=== PATIENT | male | born 1950 | race Caucasian/White ===

== ENCOUNTER 2018-11-03 09:36 | Emergency (ER) | payer MEDICARE, OTHER ==
[2018-11-03] MEDS ORDERED: CYCLOBENZAPRINE 10MG TABLET PO ONE (10:10)
[2018-11-03] MEDS ORDERED: NAPROXEN 250 MG TABLET PO ONE (10:10)
--- NOTE | 2018-11-03 10:19 | Emergency Department Record ---
History of Present Illness - General Chief complaint: Pain Stated complaint: LEFT HIP PAIN Time Seen by Provider: 11/03/18 09:51 Source: Patient Mode of Arrival: Ambulatory Limitations: No limitations - History of Present Illness Initial comments: The patient is here due to L lower back pain for 2 days. The pain is in the L lower back by his hip and does intermittently radiate to the buttocks. The pain is worse with any bending or twisting or walking and he denies any leg numbness , weakness, or any bowel or bladder issues. The patient was shoveling snow the day prior to the pain. He also denies any AP, nausea, vomiting or dysuria. MD Complaint: Other Onset/Timin Location: Left History of Same: No Radiation: Distal Severity scale (1-10): 9 Quality: Other Consistency: Constant Improves with: Other Worsens with: Exertion Associated Symptoms: Denies other symptoms - Related Data Home Medications Medication Instructions Recorded Confirmed Last Taken Aspirin Chewable 81 mg PO DAILY 11/03/18 11/03/18 11/02/18 08:00 Pravastatin Sodium [Pravachol] 10 mg PO QHS 11/03/18 11/03/18 Unknown Previous Rx's Medication Instructions Recorded Cyclobenzaprine HCl [Flexeril] 10 mg PO TID PRN #20 tablet 11/03/18 Naproxen [Naprosyn] 500 mg PO BID #14 tablet. 11/03/18 Allergies Allergy/AdvReac Type Severity Reaction Status Date / Time No Known Drug Allergies Allergy Verified 11/03/18 09:52 Travel Screening - Travel/Exposure Within Last 30 Days Have you traveled within the last 30 days?: No - Travel/Exposure Within Last Year Have you traveled outside the [place] in the last year?: No - Additonal Travel Details Have you been exposed to anyone with a communicable illness?: No - Travel Symptoms Symptom Screening: None Review of Systems Constitutional: Denies: Chills, Fever Eyes: Denies: Eye discharge ENT: Denies: Congestion Respiratory: Denies: Cough, Dyspnea Past Medical History - SOCIAL HISTORY Smoking Status: Former smoker Alcohol Use: None Drug Use: None - RESPIRATORY Hx Respiratory Disorders: No - CARDIOVASCULAR Hx Cardio Disorders: Yes Hx Hypertension: Yes Comment:: hypercholesteremia, aortic aneurysm dx by Chiropractor - NEURO Hx Neuro Disorders: Yes Hx TIA: Yes - GI Hx GI Disorders: Yes Hx Abdominal Pain: Yes - Hx Genitourinary Disorders: No - ENDOCRINE Hx Endocrine Disorders: No - MUSCULOSKELETAL Hx Musculoskeletal Disorders: No - PSYCH Hx Psych Problems: No - HEMATOLOGY/ONCOLOGY Hx Hematology/Oncology Disorders: No Family Medical History Any Significant Family History?: Yes Hx Cancer: Father, Mother, Grandparents Physical Exam - General General Appearance: Alert, Oriented x3, Cooperative, No acute distress - Head Head exam: Atraumatic, Normocephalic, Normal inspection - Eye Eye exam: Normal appearance, PERRL, EOMI - ENT Throat exam: Normal inspection. negative: Tonsillar erythema, Tonsillar exudate - Neck Neck exam: Normal inspection, Full ROM. negative: Tenderness - Respiratory Respiratory exam: Normal lung sounds bilaterally. negative: Respiratory distress - Cardiovascular Cardiovascular Exam: Regular rate, Normal rhythm, Normal heart sounds - GI/Abdominal GI/Abdominal exam: Soft, Normal bowel sounds. negative: Tenderness - Extremities Extremities exam: Normal inspection, Full ROM, Normal capillary refill. negative: Pedal edema, Tenderness Image of Full Body: 1 - Area of pain and very reproducible tenderness. - Back Back exam: Reports: Normal inspection, Paraspinal tenderness (There is L L3-5 paraspinal tenderness to palpation.). Denies: Muscle spasm, Vertebral tenderness - Neurological Neurological exam: Alert, Altered, Normal gait, Oriented X3, Reflexes normal, Other (Neg SLR bilaterally.). negative: Abnormal gait, Motor sensory deficit Course Vital Signs 11/03/18 09:38 Pulse Rate 93 H Respiratory 20 Rate Blood Pressure 177/117 Pulse Ox 96 - Reevaluation(s) Reevaluation #1: The patient is feeling much better at this time. His pain is much improved and his BP also improved. We are just waiting on his lab results from [facility] in [place]. 11/03/18 11:02 Reevaluation #2: The patient continues to improve. His BP is improved also and he does have an appointment with a PCP next Tuesday in Family Practice here. 11/03/18 11:28 Disposition Disposition: Discharge Clinical Impression: Strain of lumbar region Qualifiers: Encounter type: initial encounter Qualified Code(s): S39.012A - Strain of muscle, fascia and tendon of lower back, initial encounter Disposition: Home, Self-Care Condition: (2) Stable Instructions: Low Back Strain (ED) Additional Instructions: Please rest for 3 days with no lifting or bending. Please take the Naprosyn and Flexeril as directed and please keep your appointment with your PCP for next week. Return to the ER for any worsening pain, leg weakness, numbness, or any bowel or bladder issues. Prescriptions: Cyclobenzaprine HCl [Flexeril] 10 mg PO TID PRN #20 tablet PRN Reason: Pain Naproxen [Naprosyn] 500 mg PO BID #14 tablet.dr Forms: Patient Portal Access Time of Disposition: 11:20 Quality - Quality Measures Quality Measures: N/A - Blood Pressure Screening View Details: Yes Does Patient Have Any of the Following: Active Dx of HTN Blood Pressure Classification: Hypertensive Reading Systolic Measurement: 177 Diastolic Measurement: 117 Screening for High Blood Pressure: Patient Exclusion, Hx of HTN [G9744]
[2018-11-03 10:50] LABS: URINE APPEARANCE CLEAR; URINE BILIRUBIN NEGATIVE (NEGATIVE); URINE BLOOD NEGATIVE (NEGATIVE); URINE COLOR YELLOW; URINE GLUCOSE (UA) NEGATIVE (NEGATIVE); URINE KETONE NEGATIVE (NEGATIVE); URINE LEUKOCYTE ESTERASE NEGATIVE (NEGATIVE); URINE NITRITE NEGATIVE (NEGATIVE); URINE PROTEIN NEGATIVE (NEGATIVE); URINE UROBILINOGEN 0.2 E.U./dL (0.20 - 1.00)
== END 2018-11-03 11:28 | disposition home or self-care (01) ==
LOC: ER 09:36
DX: S39.012A Strain of muscle, fascia and tendon of lower back, initial encounter (principal); M25.552 Pain in left hip; I10 Essential (primary) hypertension; Y93.H1 Activity, digging, shoveling and raking; Z87.891 Personal history of nicotine dependence
CPT/HCPCS: 81003; 99283; 99284

== ENCOUNTER 2018-11-10 14:13 | Emergency (ER) | payer MEDICARE ==
--- NOTE | 2018-11-10 14:23 | Emergency Department Record ---
History of Present Illness - General Chief complaint: Pain Stated complaint: LEFT HIP PAIN/HERE 1 WEEK AGO Time Seen by Provider: 11/10/18 14:17 Source: Patient Mode of Arrival: Ambulatory Limitations: No limitations - History of Present Illness Initial comments: 67 yo male presents with lower left back for about 2 weeks on left lower back pain. The pain radiates to his leg on the left. The patient was seen in the ED and recently established a new PCP. The pain is sharp and is getting worse. No changes in bowel or bladder function. No incontinence. No abdominal pain. No hematuria. No history of back surgery in the past. The pain is minimal if laying down. The pain is at it worst with standing and walking. He has some numbness over the knee cap at times and the toes at times. No leg weakness, foot drop, or loss of movement. MD Complaint: Joint pain, Other (back pain) -: Week(s) Location: Left -: Yes Arthralgia Radiation: Proximal Quality: Aching Consistency: Constant Improves with: Rest Worsens with: Walking, Other (bending, twisting, lifting) Associated Symptoms: Denies other symptoms - Related Data Home Medications Medication Instructions Recorded Confirmed Last Taken Amlodipine Besylate [Norvasc] 5 mg PO DAILY 11/10/18 11/10/18 Unknown Tramadol HCl 50 mg PO Q4H 11/10/18 11/10/18 Unknown Previous Rx's Medication Instructions Recorded Cyclobenzaprine HCl [Flexeril] 10 mg PO TID PRN #20 tablet 11/03/18 Methylprednisolone [Medrol Dose 0 mg PO UD #1 tab.ds.pk 11/10/18 Pack] Allergies Allergy/AdvReac Type Severity Reaction Status Date / Time No Known Drug Allergies Allergy Verified 11/03/18 09:52 Review of Systems Constitutional: Denies: Chills, Fever, Malaise, Weakness Eyes: Denies: Eye discharge ENT: Denies: Congestion, Throat pain Respiratory: Denies: Cough, Dyspnea, Hemoptysis, Stridor, Wheezes Cardiovascular: Denies: Chest pain, Palpitations, Syncope Endocrine: Denies: Fatigue Gastrointestinal: Denies: Abdominal pain, Diarrhea, Nausea, Vomiting Genitourinary: Denies: Dysuria, Frequency, Hematuria Musculoskeletal: Reports: As per HPI, Arthralgia, Back pain Skin: Denies: Bruising, Change in color, Rash Neurological: Reports: Numbness (knee cap at times), Tingling. Denies: Abnormal gait, Confusion, Headache, Tremors, Vertigo, Weakness Psychiatric: Denies: Anxiety Hematological/Lymphatic: Denies: Blood Clots, Easy bleeding, Easy bruising Past Medical History - SOCIAL HISTORY Smoking Status: Former smoker Drug Use: None - RESPIRATORY Hx Respiratory Disorders: No - CARDIOVASCULAR Hx Cardio Disorders: Yes Hx Hypertension: Yes Comment:: hypercholesteremia, aortic aneurysm dx by Chiropractor - NEURO Hx Neuro Disorders: Yes Hx TIA: Yes - GI Hx GI Disorders: Yes Hx Abdominal Pain: Yes - Hx Genitourinary Disorders: No - ENDOCRINE Hx Endocrine Disorders: No - MUSCULOSKELETAL Hx Musculoskeletal Disorders: No - PSYCH Hx Psych Problems: No - HEMATOLOGY/ONCOLOGY Hx Hematology/Oncology Disorders: No Family Medical History Hx Cancer: Father, Mother, Grandparents Physical Exam - General General Appearance: Alert, Oriented x3, Cooperative, No acute distress Limitations: No limitations - Head Head exam: Atraumatic, Normal inspection - Eye Eye exam: Normal appearance, PERRL. negative: Conjunctival injection, Scleral icterus - ENT ENT exam: Normal exam Ear exam: Normal external inspection Nasal Exam: Normal inspection Mouth exam: Normal external inspection - Neck Neck exam: Normal inspection - Respiratory Respiratory exam: Normal lung sounds bilaterally. negative: Respiratory distress - Cardiovascular Cardiovascular Exam: Regular rate, Normal rhythm, Normal heart sounds - GI/Abdominal GI/Abdominal exam: Soft. negative: Diminished bowel sounds, Distended, Guarding , Hyperactive bowel sounds, Pulsatile mass, Rebound, Rigid, Tenderness - Rectal Rectal exam: Deferred - exam: Deferred - Extremities Extremities exam: Normal inspection, Full ROM, Tenderness (lateral/posterior left hip). negative: Calf tenderness, Joint swelling, Pedal edema - Back Back exam: Reports: CVA tenderness (L), Paraspinal tenderness, Tenderness - Neurological Neurological exam: Alert, CN II-XII intact, Normal gait, Oriented X3, Reflexes normal, Other (No foot drop, no weakness of plantar or dorsiflaxion, no quads weakness overcoming gravity easily with symmetric strength, SLT is negative bilateral). negative: Altered, Motor sensory deficit - Psychiatric Psychiatric exam: Normal affect, Normal mood. negative: Agitated, Anxious - Skin Skin exam: Dry, Intact, Normal color, Warm Course - Reevaluation(s) Reevaluation #1: 11/10/18 14:22 The EMR was reviewed from the 11/03/18 ED visit. 11/10/18 15:[address] was read as negative for acute intra-abdominal pathology. No aneurysm. The spine demonstrated multilevel degenerative changes. The patient was told by his chiropractor that he had a AAA. The patient was informed he does not. His symptoms are most consistent with radiculopathy/ sciatica. I informed him the US will not be helpful and to discuss this with his PCP. We discussed sciatica, follow up, treatment options and discussing possible outpatient MRI through his PCP, and reasons for immediate medical evaluation. Disposition Disposition: Discharge Clinical Impression: Sciatica Qualifiers: Laterality: left Qualified Code(s): M54.32 - Sciatica, left side Disposition: Home, Self-Care Condition: (1) Good Instructions: Sciatica (ED) Additional Instructions: Call your doctor for the next available follow up appointment Return to the ER for a recheck if worse, weakness, changes in bowel or bladder funciton, or any new concerns or questions Take the prescriptions provided as directed Review this ER visit and the tests performed with your family doctor You do not have an aneurysm on the CT scan. Discuss with your doctor whether or not to cancel the scheduled US of the abdomen Prescriptions: Methylprednisolone [Medrol Dose Pack] 0 mg PO UD #1 tab.ds.pk Forms: Patient Portal Access Time of Disposition: 15:40 Quality - Quality Measures Quality Measures: N/A - Blood Pressure Screening Does Patient Have Any of the Following: No Blood Pressure Classification: Hypertensive Reading Systolic Measurement: 172 Diastolic Measurement: 115 Screening for High Blood Pressure: < Pre-Hypertensive BP, F/U Documented > [ [id number]] Pre-Hypertensive Follow-up Interventions: Referral to alternative/primary care provider.
--- NOTE | 2018-11-14 03:49 | CT SCAN REPORT ---
DATE: 11/10/2018 at 1449 hours. EXAM: CT SCAN OF THE ABDOMEN AND PELVIS WITHOUT CONTRAST. HISTORY: Left flank pain and left lumbar region pain radiating to the left hip and lower extremity. Symptoms for the past nine days. TECHNIQUE: Standard CT imaging of the abdomen and pelvis was performed in the axial plane without contrast. Additional coronal and sagittal reformatted images were also performed. COMPARISON: 07/31/2016. FINDINGS: There is minor linear atelectasis or scarring at the lung bases. The lung bases are otherwise clear. The liver, gallbladder, biliary tree, pancreas, spleen, and right adrenal gland are normal. There is a small, low- density nodule within the left adrenal gland measuring 13 x 14 mm. This is minimally larger than the previous examination and consistent with a lipid-rich adenoma. The kidneys and ureters are normal. There is no urinary tract calculus or obstructive uropathy. Atherosclerotic changes are present within the aorta with no aneurysm. There is no retroperitoneal lymphadenopathy. The stomach is normal. The large and small bowel loops, including the appendix, are normal. There are no focal inflammatory changes. There is no pneumoperitoneum or ascites. The urinary bladder is normal. The prostate gland is mildly enlarged. Multilevel degenerative disc disease and facet arthropathy are present within the lumbar spine. There is no visible disc herniation or acute osseous abnormality. IMPRESSION: 1. NO ACUTE INTRAABDOMINAL PATHOLOGY. THERE IS NO URINARY TRACT CALCULUS OR OBSTRUCTIVE UROPATHY. 2. MULTILEVEL DEGENERATIVE CHANGES WITHIN THE SPINE WITH NO ACUTE PATHOLOGY IDENTIFIED. 3. SMALL LEFT ADRENAL ADENOMA. JOB NUMBER: [id number] [facility]
== END 2018-11-10 15:45 | disposition home or self-care (01) ==
LOC: ER 14:13
DX: M54.32 Sciatica, left side (principal); Z87.891 Personal history of nicotine dependence; E78.00 Pure hypercholesterolemia, unspecified; Z86.73 Personal history of transient ischemic attack (TIA), and cerebral infarction without residual deficits
CPT/HCPCS: 74176; 99283

== ENCOUNTER 2019-03-15 16:28 | Observation (INO) | payer MEDICARE ==
--- NOTE | 2019-03-15 17:11 | Emergency Department Record ---
History of Present Illness - General Chief Complaint: Numbness Stated Complaint: NUMBNESS IN RT ARM Time Seen by Provider: 03/15/19 16:31 Source: Patient Mode of Arrival: Ambulatory Limitations: No limitations - History of Present Illness Initial Comments: The patient is here due to an 8 hour hx of R forearm and hand numbness. Since 9:30 this morning the patient has had 3 episodes of his R forearm and 4th and 5th fingers become weak and slightly numb. They have each lasted about 45 minutes and have completely resolved each time. The last episode was just over an hour ago. During the episodes it seems that the 4th and 5th fingers do not want to work and the ulnar side of the forearm is slightly numb. There are no visual changes during the episodes, or any leg or speech involvement. The patient presently is completely back to normal. He has no hx of CVA or TIA's. Onset/Timin -: Hour(s) Location: Right arm History of same: No Severity: Mild Quality: Numb Improves With: None Worsens With: None Associated Symptoms: Denies other symptoms Treatments Prior to Arrival: None - [place] Coma Scale Eye Response: (4) Open spontaneously Motor Response: (6) Obeys commands Verbal Response: (5) Oriented Seth Total: 15 - Related Data Home Medications: Home Medications Medication Instructions Recorded Confirmed Last Taken Aspirin [Adult Aspirin Regimen] 81 mg PO DAILY 03/15/19 03/15/19 03/15/19 Naproxen Sodium [Aleve] 220 mg PO ASDIR 03/15/19 03/15/19 03/15/19 Allergies/Adverse Reactions: Allergies Allergy/AdvReac Type Severity Reaction Status Date / Time No Known Drug Allergies Allergy Verified 03/15/19 16:36 Travel Screening - Travel/Exposure Within Last 30 Days Have you traveled within the last 30 days?: Yes Location Detail:: [facility] - Travel/Exposure Within Last Year Have you traveled outside the [place] in the last year?: No [facility] Detail[facility] [place] [facility] Travel Details Have you been exposed to anyone with a communicable illness?: No - Travel Symptoms Symptom Screening: None Review of Systems Constitutional: Denies: Chills, Fever Eyes: Denies: Eye discharge ENT: Denies: Congestion, Throat pain Respiratory: Denies: Dyspnea Cardiovascular: Denies: Arrhythmia Endocrine: Denies: Fatigue Gastrointestinal: Denies: Nausea Genitourinary: Denies: Dysuria Musculoskeletal: Denies: Arthralgia Skin: Denies: Bruising Past Medical History - SOCIAL HISTORY Smoking Status: Former smoker Alcohol Use: None Drug Use: None - RESPIRATORY Hx Respiratory Disorders: No - CARDIOVASCULAR Hx Cardio Disorders: Yes Hx Hypertension: Yes Comment:: hypercholesteremia, aortic aneurysm dx by Chiropractor - NEURO Hx Neuro Disorders: Yes Hx TIA: Yes - GI Hx GI Disorders: Yes Hx Abdominal Pain: Yes - Hx Genitourinary Disorders: No - ENDOCRINE Hx Endocrine Disorders: No - MUSCULOSKELETAL Hx Musculoskeletal Disorders: No - PSYCH Hx Psych Problems: No - HEMATOLOGY/ONCOLOGY Hx Hematology/Oncology Disorders: No Family Medical History Any Significant Family History?: Yes Hx Cancer: Father, Mother, Grandparents Physical Exam - General General Appearance: Alert, Oriented x3, Cooperative, No acute distress - Head Head exam: Atraumatic, Normocephalic, Normal inspection - Eye Eye exam: Normal appearance, PERRL - Neck Neck exam: Normal inspection, Full ROM. negative: Tenderness - Respiratory Respiratory exam: Normal lung sounds bilaterally. negative: Respiratory distress - Cardiovascular Cardiovascular Exam: Regular rate, Normal rhythm, Normal heart sounds - GI/Abdominal GI/Abdominal exam: Soft, Normal bowel sounds. negative: Tenderness - Extremities Extremities exam: Normal inspection, Full ROM, Normal capillary refill. negative: Tenderness - Back Back exam: Reports: Normal inspection - Neurological Neurological exam: Alert, CN II-XII intact, Normal gait, Oriented X3, Other (Neg Drift and [place]omberg.). negative: Abnormal gait, Altered, Motor sensory deficit - Psychiatric Psychiatric exam: negative: Anxious Course Vital Signs 03/15/19 16:39 Temperature 97.7 F Pulse Rate 61 Respiratory 20 Rate Blood Pressure 165/113 Pulse Ox 97 - Reevaluation(s) Reevaluation #1: The patient is doing very well at this time. His R arm numbness has not returned and he is feeling completely back to normal. The patient's BP also is improved. We are waiting on the head CT results at this time. 03/15/19 18:11 Reevaluation #2: The patient is doing very well at this time. He has had no further episodes of R arm and hand weakness. I did discuss the issues with him and the fact that with his risk factors of HTN, and high cholesterol I am concerned these symptoms could be from a TIA. Due to that fact I did discuss the need to admit the patient overnight for monitoring and to obtain carotid dopplers in the AM. The patient agreed to the plan and I did discuss the case with Charo ([employer] SCRE[employer] OPERATOR) who did accept the patient for admission for Dr. Valles. 03/15/19 18:24 Medical Decision Making - Data Complexity MDM Data: Labs Ordered and/or Reviewed, X-Ray Ordered and/or Reviewed, EKG Ordered and/or Reviewed - Lab Data Result diagrams: 03/15/19 17:20 03/15/19 17:20 - EKG Data -: EKG Interpreted by Me EKG: No Acute Changes, Normal EKG - Radiology Data Radiology results: Report reviewed (Head CT: neg for acute changes.) Disposition Disposition: Admit Clinical Impression: TIA (transient ischemic attack) Disposition: Still a Patient at [facility] Decision to Admit: Admit from ER Decision to Admit Date: 03/15/19 Decision to Admit Time: 18:27 Accepting Physician: Hai Time Discussed w/Accepting Physician: 18:27 Condition: (2) Stable Forms: Patient Portal Access Time of Disposition: 18:27 Quality - Quality Measures Quality Measures: N/A - Blood Pressure Screening View Details: Yes Does Patient Have Any of the Following: Active Dx of HTN Blood Pressure Classification: Hypertensive Reading Systolic Measurement: 165 Diastolic Measurement: 113 Screening for High Blood Pressure: Patient Exclusion, Hx of HTN [G9744]
[2019-03-15 17:26] LABS: ABSOLUTE NEUTROPHIL COUNT 3.47; HEMOGLOBIN 14.7 gm/dl (14.0-18.0); RED BLOOD COUNT 4.93 M/uL (4.40-5.70); WHITE BLOOD COUNT W/O DIFF 5.5 K/uL (4.2-12.2)
[2019-03-15 17:27] LABS: BASO % 0.5 % (0-6); EOS % 4.4 % (0-6); HEMATOCRIT 43.6 % (42.0-52.0); LYMPH % 23.6 % (16-45); MEAN CELL VOLUME 88.4 fl (81-97); MEAN CORPUSCULAR HEMOGLOBIN 29.8 pg (27-33); MEAN CORPUSCULAR HGB CONC 33.7 g/dl (32-36); MEAN PLATELET VOLUME 9.7 fl (7.4-10.4); MONO % 8.5 % (0-9); PLATELET COUNT 179 K/uL (130-400); RED CELL DISTRIBUTION WIDTH 13.3 % (11.5-14.5)
[2019-03-15 17:37] LABS: BLOOD UREA NITROGEN 14 mg/dL (8-23); CREATININE 0.5 mg/dL (0.7-1.2); EST GLOMERULAR FILTRATION RATE > 60 mL/min
[2019-03-15 17:38] LABS: TOTAL PROTEIN 6.9 g/dL (6.6-8.7)
[2019-03-15 17:39] LABS: PARTIAL THROMBOPLASTIN TIME 25.9 SECONDS (24.5-39.1); PROTHROMBIN TIME (PATIENT) 10.4 SECONDS (9.5-12.1)
[2019-03-15 17:40] LABS: GLUCOSE,RANDOM 97 mg/dL (74-109)
[2019-03-15 17:43] LABS: ALB/GLOB RATIO 1.4 (1.1-1.8); ALKALINE PHOSPHATASE 80 U/L (40-129); ALT/SGPT 17 U/L (<41); AST/SGOT 31 U/L (10.0-50.0)
[2019-03-15] MEDS ORDERED: ASPIRIN 325 MG TABLET PO ONE (18:23)
[2019-03-15] MEDS ORDERED: ACETAMINOPHEN 325 MG TAB PO PRN (19:48)
[2019-03-15] MEDS ORDERED: NAPROXEN SODIUM 220 MG PO SCH (19:48)
[2019-03-15] MEDS ORDERED: SIMVASTATIN 10MG TABLET PO SCH (22:00)
[2019-03-15] MEDS ORDERED: AMLODIPINE BESYLATE 5MG TAB PO SCH (22:00)
--- NOTE | 2019-03-16 07:24 | CT SCAN REPORT ---
EXAM: EMERGENCY HEAD CT HISTORY: RIGHT ARM AND HAND NUMBNESS. TECHNIQUE: Axial CT scan of the head was performed without IV contrast. Comparison: Head CT 09/14/13. FINDINGS: No definite acute intracranial hemorrhage identified. No focal mass effect or midline shift evident. Mild generalized atrophy. No definite acute infarct or intracranial mass lesion seen. Mild membrane thickening in the left maxillary antrum. No depressed calvarial fracture evident. IMPRESSION: 1. NO DEFINITE ACUTE INTRACRANIAL HEMORRHAGE OR FOCAL MASS EFFECT EVIDENT. 2. MILD GENERALIZED ATROPHY. 3. SOME MEMBRANE THICKENING IN THE LEFT MAXILLARY ANTRUM. JOB NUMBER: [id number] [facility]TDD
[2019-03-16] MEDS ORDERED: ASPIRIN 325 MG TABLET PO SCH (10:00)
--- NOTE | 2019-03-16 12:22 | History & Physical ---
History of Present Illness - Date of Service Date of Service for History & Physical: 03/16/19 - History of Present Illness Admitting Diagnosis: 1. Acute TIA History of Present Illness: 68 y/o male presented to ED for complaint of right forearm and lateral right hand numbness and inability to move them with associated with a feeling of not thinking clearly x 3 yesterday. Each time lasted about 45 minutes. He denies any visual changes or chest pain/palpitations during these episodes. Denies any previous neck injury and reports he has never had these symptoms before. No seizure history or TIA/CVA history. Reports began treatment for HTN and elevated cholesterol October 2018 by PCP. Has never seen flat knitter or had cardiac stress test. PMH includes HTN, dyslipidemia, previous smoker. He reports his chiropractor thought he had an abdominal aneurysm but was ruled out via imaging as ordered by his PCP. Upon arrival VS stable. CBC normal. Coag panel normal. Potassium 4.8. Na 135. Total bili 1.2. CT head negative for acute process. EKG NSR. He was admitted to the floor for obs and carotid dopplers. Symptoms completely resolved prior to arrival to floor. 03/16/19- Resting in bed comfortably. Has been asymptomatic since arrival to the floor. 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 Symptoms yesterday were precipitated by driving and typing at computer. Is right hand dominant. Denies any further complaint. PCP. Dr Montenegro Travel Screening - Travel/Exposure Within Last 30 Days Have you traveled within the last 30 days?: Yes Location Detail:: [place] - Travel/Exposure Within Last Year Have you traveled outside the [place] in the last year?: No Location Detail:: [place] - Additonal Travel Details Have you been exposed to anyone with a communicable illness?: No - Travel Symptoms Symptom Screening: None Review of Systems Constitutional: Denies: Chills, Fever Eyes: Denies: Eye discharge ENT: Denies: Congestion, Throat pain Respiratory: Denies: Dyspnea Cardiovascular: Denies: Arrhythmia Endocrine: Denies: Fatigue Gastrointestinal: Denies: Nausea Genitourinary: Denies: Dysuria Musculoskeletal: Denies: Arthralgia Skin: Denies: Bruising Past Medical History - SOCIAL HISTORY Smoking Status: Former smoker Alcohol Use: None Drug Use: None - RESPIRATORY Hx Respiratory Disorders: No - CARDIOVASCULAR Hx Cardio Disorders: Yes Hx Hypertension: Yes Comment:: hypercholesteremia, aortic aneurysm dx by Chiropractor - NEURO Hx Neuro Disorders: Yes Hx TIA: Yes - GI Hx GI Disorders: Yes Hx Abdominal Pain: Yes - Hx Genitourinary Disorders: No - ENDOCRINE Hx Endocrine Disorders: No - MUSCULOSKELETAL Hx Musculoskeletal Disorders: No - PSYCH Hx Psych Problems: No - HEMATOLOGY/ONCOLOGY Hx Hematology/Oncology Disorders: No Family Medical History Any Significant Family History?: Yes Hx Cancer: Father, Mother, Grandparents H&P Meds/Allergies - Allergies Allergies: Allergies Allergy/AdvReac Type Severity Reaction Status Date / Time No Known Drug Allergies Allergy Verified 03/15/19 16:36 - Home Medications Home Medications Medication Instructions Recorded Confirmed Last Taken Aspirin [Adult Aspirin Regimen] 81 mg PO DAILY 03/15/19 03/15/19 03/15/19 Naproxen Sodium [Aleve] 440 mg PO DAILY 03/15/19 03/16/19 03/15/19 - Active Medications Active Medications: Current Medications Acetaminophen (Tylenol 325mg) 650 mg PO Q6H PRN PRN Reason: PAIN - MILD(1-4)/FEVER Amlodipine Besylate (Norvasc) 5 mg PO QHS [facility] Last Admin: 03/15/19 21:06 Dose: 5 mg Documented by: Aspirin (Aspirin, Regular) 325 mg PO DAILY [facility] Last Admin: 03/16/19 09:41 Dose: 325 mg Documented by: Non-Formulary Medication (Naproxen Sodium [Aleve]) 220 mg PO ASDIR [facility] Simvastatin (Zocor) 5 mg PO QHS [facility] Last Admin: 03/15/19 21:05 Dose: 5 mg Documented by: Physical Exam - Vital Signs Vital Signs: Vital Signs - Last 24 Hrs Temp Pulse Pulse Resp BP BP Pulse Ox 03/16/19 08:09 20 03/16/19 07:52 98 F 64 18 140/80 100 03/15/19 20:15 16 03/15/19 20:00 97.9 F 61 18 144/81 100 03/15/19 18:36 60 18 147/89 97 03/15/19 17:48 60 18 156/84 98 03/15/19 16:39 97.7 F 61 20 165/113 97 - General General Appearance: Alert, Oriented x3, Cooperative, No acute distress Limitations: No limitations - Head Head exam: Atraumatic, Normocephalic, Normal inspection - Eye Eye exam: Normal appearance, PERRL, EOMI. negative: Nystagmus - ENT ENT exam: Normal exam, Mucous membranes moist, Normal external ear exam, Normal orophraynx, TM's normal bilaterally - Neck Neck exam: Normal inspection, Full ROM, Other (no carotid bruit bilat). negative: Tenderness - Respiratory Respiratory exam: Normal lung sounds bilaterally. negative: Respiratory distress - Cardiovascular Cardiovascular Exam: Regular rate, Normal rhythm, Normal heart sounds Peripheral Pulses: 3+: Radial (R), Radial (L) - GI/Abdominal GI/Abdominal exam: Soft, Normal bowel sounds. negative: Tenderness - Extremities Extremities exam: Normal inspection, Full ROM, Normal capillary refill. negative: Tenderness - Back Back exam: Reports: Normal inspection - Neurological Neurological exam: Alert, CN II-XII intact, Normal gait, Oriented X3, Other (Neg Drift and Rhomberg.). negative: Abnormal gait, Altered, Motor sensory deficit - Psychiatric Psychiatric exam: negative: Anxious Results - Labs Result Diagrams: 03/15/19 17:20 03/15/19 17:20 Labs Last 24 Hours: Laboratory Results - last 24 hr 03/15/19 03/15/19 03/15/19 17:20 17:20 17:20 WBC 5.5 RBC 4.93 Hgb 14.7 Hct 43.6 MCV 88.4 MCH 29.8 MCHC 33.7 RDW 13.3 Plt Count 179 MPV 9.7 Gran % 63.0 Lymphocytes % 23.6 Monocytes % 8.5 Eosinophils % 4.4 Basophils % 0.5 Absolute Neutrophils 3.47 PT 10.4 INR 1.0 APTT 25.9 Sodium 135 L Potassium 4.8 H Chloride 101 Carbon Dioxide 22.0 Anion Gap 12.0 BUN 14 Creatinine 0.5 L Estimated GFR > 60 Random Glucose 97 Calcium 8.6 L Total Bilirubin 1.20 H AST 31 ALT 17 Alkaline Phosphatase 80 Total Protein 6.9 Albumin 4.0 Globulin 2.9 Albumin/Globulin Ratio 1.4 - Imaging and Cardiology CT scan - head Status: Report reviewed VTE H&P Assessment - Risk for VTE Risk for VTE: Yes Risk Level: Low Risk Assessment Date: 03/16/19 Risk Assessment Time: 12:23 VTE Orders Placed or Will Be Placed: Yes Plan - Detailed Diagnosis and Plan (1) TIA (transient ischemic attack) Current Visit: Yes Status: Acute Base Code: G45.9 - TRANSIENT CEREBRAL ISCHEMIC ATTACK, UNSPECIFIED Comment: 03/16/19 - CT head negative for acute process - No previous hx of TIA/CVA - Right hand and arm symptoms precipitated by lifting of arm via driving and typing at computer - Ulnar neuropathy vs. TIA presentation - Carotid dopplers pending - ASA 325 mg QD (2) HTN (hypertension) Current Visit: Yes Status: Acute Qualifiers: Hypertension type: essential hypertension Qualified Code(s): I10 - Essential (primary) hypertension Base Code: I10 - ESSENTIAL (PRIMARY) HYPERTENSION Comment: 03/16/19 - Norvasc 5mg QD (3) Hyperlipidemia Current Visit: Yes Status: Acute Qualifiers: Hyperlipidemia type: unspecified Qualified Code(s): E78.5 - Hyperlipidemia, unspecified Base Code: E78.5 - HYPERLIPIDEMIA, UNSPECIFIED Comment: 03/16/19 - Lipitor 5mg Q hs - Total bilirubin elevated, no previous drinking history or liver disease, could likely represent fatty liver 2nd elevated cholesterol (4) DVT prophylaxis Current Visit: Yes Status: Acute Base Code: Z29.9 - ENCOUNTER FOR PROPHYLACTIC MEASURES, UNSPECIFIED Comment: 03/16/19 - Nursing to encourage frequent ambulation - ASA 325 mg QD (5) Full code status Current Visit: Yes Status: Acute Base Code: Z78.9 - OTHER SPECIFIED HEALTH STATUS Comment: 03/16/19
--- NOTE | 2019-03-16 13:56 | Discharge Summary ---
Providers Discharge Summary Date: 03/16/19 Date of admission: 03/15/19 19:44 Expected Date of Discharge: 03/16/19 Attending physician: GILBERT HEREDIA Primary care physician: JAZZY TEIXEIRA M.D. Physical Exam - Vital Signs Vital Signs: Vital Signs - Last 24 Hrs Temp Pulse Pulse Resp BP BP Pulse Ox 03/16/19 12:00 98.9 F 69 18 140/78 100 03/16/19 08:09 20 03/16/19 07:52 98 F 64 18 140/80 100 03/15/19 20:15 16 03/15/19 20:00 97.9 F 61 18 144/81 100 03/15/19 18:36 60 18 147/89 97 03/15/19 17:48 60 18 156/84 98 03/15/19 16:39 97.7 F 61 20 165/113 97 - General General Appearance: Alert, Oriented x3, Cooperative, No acute distress Limitations: No limitations - Head Head exam: Atraumatic, Normocephalic, Normal inspection - Eye Eye exam: Normal appearance, PERRL, EOMI. negative: Nystagmus - ENT ENT exam: Normal exam, Mucous membranes moist, Normal external ear exam, Normal orophraynx, TM's normal bilaterally - Neck Neck exam: Normal inspection, Full ROM, Other (no carotid bruit bilat). negative: Tenderness - Respiratory Respiratory exam: Normal lung sounds bilaterally. negative: Respiratory distress - Cardiovascular Cardiovascular Exam: Regular rate, Normal rhythm, Normal heart sounds Peripheral Pulses: 3+: Radial (R), Radial (L) - GI/Abdominal GI/Abdominal exam: Soft, Normal bowel sounds. negative: Tenderness - Extremities Extremities exam: Normal inspection, Full ROM, Normal capillary refill. negative: Tenderness - Back Back exam: Reports: Normal inspection - Neurological Neurological exam: Alert, CN II-XII intact, Normal gait, Oriented X3, Other (Neg Drift and Rhomberg.). negative: Abnormal gait, Altered, Motor sensory deficit - Psychiatric Psychiatric exam: negative: Anxious Hospitalization - Hospitalization Admission Diagnosis: 1. Acute TIA - Problem List/Discharge Diagnosis (1) TIA (transient ischemic attack) Current Visit: Yes Status: Acute Base Code: G45.9 - TRANSIENT CEREBRAL ISCHEMIC ATTACK, UNSPECIFIED Comment: 03/16/19 - CT head negative for acute process - No previous hx of TIA/CVA - Right hand and arm symptoms precipitated by lifting of arm via driving and typing at computer - Ulnar neuropathy vs. TIA presentation - Carotid dopplers- preliminary results are negative for occlusion - ASA 325 mg QD - Follow up with PCP next week. May need to explore EMG to rule out neuropathy vs. seizure d/o vs. neurovascular cause (2) HTN (hypertension) Current Visit: Yes Status: Acute Discharge Diagnosis: Hypertension type: essential hypertension Qualified Code(s): I10 - Essential (primary) hypertension Base Code: I10 - ESSENTIAL (PRIMARY) HYPERTENSION Comment: 03/16/19 - Norvasc 5mg QD (3) Hyperlipidemia Current Visit: Yes Status: Acute Discharge Diagnosis: Hyperlipidemia type: unspecified Qualified Code(s): E78.5 - Hyperlipidemia, unspecified Base Code: E78.5 - HYPERLIPIDEMIA, UNSPECIFIED Comment: 03/16/19 - Lipitor 5mg Q hs - Total bilirubin elevated, no previous drinking history or liver disease, could likely represent fatty liver 2nd elevated cholesterol. Otherwise liver enzymes are normal (4) DVT prophylaxis Current Visit: Yes Status: Acute Base Code: Z29.9 - ENCOUNTER FOR PROPHYLACTIC MEASURES, UNSPECIFIED Comment: 03/16/19 - Nursing to encourage frequent ambulation - ASA 325 mg QD (5) Full code status Current Visit: Yes Status: Acute Base Code: Z78.9 - OTHER SPECIFIED HEALTH STATUS Comment: 03/16/19 - Hospitalization Course Disposition: Home, Self-Care Hospital Course: 68 y/o male presented to ED for complaint of right forearm and lateral right hand numbness and inability to move them with associated with a feeling of not thinking clearly x 3 yesterday. Each time lasted about 45 minutes. He denies any visual changes or chest pain/palpitations during these episodes. Denies any previous neck injury and reports he has never had these symptoms before. No seizure history or TIA/CVA history. Reports began treatment for HTN and elevated cholesterol October 2018 by PCP. Has never seen law firm partner or had cardiac stress test. PMH includes HTN, dyslipidemia, previous smoker. He reports his chiropractor thought he had an abdominal aneurysm but was ruled out via imaging as ordered by his PCP. Upon arrival VS stable. CBC normal. Coag panel normal. Potassium 4.8. Na 135. Total bili 1.2. CT head negative for acute process. EKG NSR. He was admitted to the floor for obs and carotid dopplers. Symptoms completely resolved prior to arrival to floor. 03/16/19 0940- Resting in bed comfortably. Has been asymptomatic since arrival to the floor. 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 Symptoms yesterday were precipitated by driving and typing at computer. Is right hand dominant. Denies any further complaint. 03/16/19 1352- Preliminary carotid doppler results negative for occlusion. He does have cardiac risk factors including former smoker, obesity, high cholesterol, HTN. Hospital course unremarkable. No further symptoms. He will need to follow up with PCP next week PCP. Dr Montenegro Procedures: Imaging and X-Rays 03/15/19 16:56 HEAD WO CONTRAST [CT] Stat 03/16/19 08:48 ARTERIAL DOPPLER CAROTID MARIA ALEJANDRA [US] Routine Cardiology Procedures 03/15/19 16:55 EKG NOW Abnormal Labs: Abnormal Lab Results 03/15/19 Range/Units 17:20 Sodium 135 L (136-145) mmol/L Potassium 4.8 H (3.4-4.5) mmol/L Creatinine 0.5 L (0.7-1.2) mg/dL Calcium 8.6 L (8.8-10.2) mg/dL Total Bilirubin 1.20 H (0.2-1.0) mg/dL Condition at Discharge: (2) Stable Discharge Medications - Discharge Medications Home Medications: Ambulatory Orders Pravastatin Sodium [Pravachol] 10 mg PO QHS 11/03/18 [Last Taken 03/15/19] Amlodipine Besylate [Norvasc] 5 mg PO QHS 11/10/18 [Last Taken 03/15/19] Aspirin [Adult Aspirin Regimen] 81 mg PO DAILY 03/15/19 [Last Taken 03/15/19] Naproxen Sodium [Aleve] 440 mg PO DAILY 03/15/19 [Last Taken 03/15/19] Aspirin, Regular 325 mg PO DAILY tablet 03/16/19 [Last Taken Unknown] Discharge Plan - Discharge Instructions Activity at Discharge: Increase Activity as Tolerated Diet at Discharge: Low Fat, Low Cholesterol Instructions: Transient Ischemic Attack (DC) Additional Instructions: Follow up with your doctor in the next 5-7 days Diet and activity as tolerated. Return to the Emergency Department if getting worse. Resume home meds Your bilirubin was elevated during your visit, follow up with your PCP regarding this for repeat labs. Quality Measures - Quality Measures Quality Measures: Advance Directives, Documentation of Current Medications in Medical Record, Elder Maltreatment Screen and Follow-Up Plan, Screening for High Blood Pressure and F/U Documented - Current Medications Quality Measure: Measure #130: Documentation of Current Medications Documentation of Current Medications: <Current Medications Documented/Reviewed> [C7616] - Blood Pressure Screening Quality Measure: Screening for High Blood Pressure and Follow-Up Documented Does Patient Have Any of the Following: Active Dx of HTN Blood Pressure Classification: Hypertensive Reading Systolic Measurement: 165 Diastolic Measurement: 113 Screening for High Blood Pressure: Patient Exclusion, Hx of HTN [G9744] - Advance Directives Quality Measure: Measure #47: Care Plan Advance Directives Established: No Advance Directives Information Provided To Patient: No Advance Directives on File: No Living Will: No Power of Pediatric Lpn: No Advance Care Planning: <Care Plan/Decision Maker Documented; Discussed & Documented> [1123F] - Elder Abuse Suspicion Index Screening: Elder Abuse Suspicion Index Screening Rely on people for bathing, dressing, shopping, banking, etc: No Prevented from getting food, clothes, medication, etc: No Made to feel shamed or threatened by someone: No Forced to sign papers or use money against will: No Feel afraid, touched in ways not wanted or hurt physically: No Poor eye contact, withdrawn, malnourished, cuts or bruises: No Screening Result: Negative result EASI Reference Information: Diamond HEBERT, Ngoc C, Norman D, Virgie Escoto.Development and validation of a tool to assist physicians identification of elder abuse: The Elder Abuse Suspicion Index (EASI ). Journal of Elder Abuse and Neglect, 2008; 20 (3): 276-300. - Elder Maltreatment Screen Quality Measures: Elder Maltreatment Screen and Follow-Up Plan Elder Maltreatment Screen: <Negative, No Follow-Up Plan Required> [[id number]]
--- NOTE | 2019-03-19 07:29 | US CAROTID DOPPLER REPORT ---
EXAM: BILATERAL CAROTID DOPPLER ULTRASOUND HISTORY: TIA. TECHNIQUE: Ultrasound imaging of the carotid arteries bilaterally was performed with de oliveira scale, color Doppler and spectral Doppler. Comparison: None. FINDINGS: Mild heterogeneous and smooth plaque in the carotid bulbs and the proximal internal carotid arteries bilaterally. PSV EDV Distal Right CCA: 91 cm/s Right ICA: 69 cm/s 24 cm/s Right ECA: 121 cm/s The right ICA/CCA ratio is 0.8. Left CCA: 84 cm/s Left ICA: 58 cm/s 17 cm/s Left ECA: 60 cm/s The left ICA/CCA ratio is 0.7. IMPRESSION: MILD PLAQUE IN THE CAROTID ARTERIES BILATERALLY WITH PREDICTED STENOSIS IN THE ICA'S OF LESS THAN 50% BILATERALLY. JOB NUMBER: [id number] MTDD
== END 2019-03-16 14:40 | disposition home or self-care (01) ==
LOC: ER 16:28 → MEDSURG 19:44
PROVIDERS: ADMIT Internal Medicine; ATTEND Internal Medicine
DX: G45.9 Transient cerebral ischemic attack, unspecified (principal); I10 Essential (primary) hypertension; E78.00 Pure hypercholesterolemia, unspecified; E78.5 Hyperlipidemia, unspecified; Z87.891 Personal history of nicotine dependence; Z86.73 Personal history of transient ischemic attack (TIA), and cerebral infarction without residual deficits
CPT/HCPCS: 85025; 85730; 85610; 80053; 93880; 70450; 93005; 93010; G0378 ×2; J3490; 99220; 99285